=== PATIENT | male | born 1945 | race Caucasian/White ===

== ENCOUNTER 2019-02-18 17:57 | Inpatient (IN) | payer OTHER ==
[~2019-02-18] VITALS: Ht 167.6 cm; Wt 63.5 kg
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
--- NOTE | ~2019-02-18 | PR ---
[place], [place] PROGRESS NOTE NAME: [facility]CANTAR [id number] UNIT #: [id number] ROOM: 315 DOCTOR: ROOPA AGUILERA CNP BIRTHDATE: [birth year] DOS: 02/21/2019 CHIEF COMPLAINT: "Dolor de estomago." SUMMARY OF THE VISIT: The patient was interviewed as he sat in the dining room, eating his breakfast. The patient did engage in conversation with me. He does tell me in Bolivian that he has a stomachache. Staff reports that yesterday the patient did throw up after breakfast and had decreased appetite the rest of the day. He did have an episode of being irritable and anxious and pacing yesterday. He did sleep 7 hours. MENTAL STATUS EXAMINATION: The patient is alert and oriented to self. He was pleasant with me. No sarah or hypomania noted. No delusions or paranoia noted. No psychotic symptoms noted. No auditory or visual hallucinations noted. The patient's mood was calm. His affect congruent with mood. No agitation, irritability or aggression noted at this time. PLAN: Due to the patient having stomachache, I am not going to change any medications at this time, may even to consider increasing Risperdal if the patient does continue to display agitation, irritability, and pacing. However, at this time, I recommend that we just monitor due to the patient is not feeling well. The patient also was taking Nuplazid [facility]. This medication is not available here at the hospital. We will try to see if we can get some samples for this patient in order that he can continue his medication. Continue to monitor the patient for effectiveness of medication as well as any side effects. Continue to encourage the patient to engage in individual and ochoa milieu activity. Continue fall and safety precautions. Plan to return the patient to the least restrictive environment once he is considered psychiatrically stable. Roopa Aguilera CNP CM:PNTRANS 33 ROOPA AGUILERA CNP 02/21/19 2233 interface
--- NOTE | ~2019-02-18 | PR ---
[place], [place] PROGRESS NOTE NAME: IRAM ALCANTAR UNIT #: [id number] ROOM: 315 DOCTOR: MAYCO WREN MD BIRTHDATE: [birth year] DOS: 02/22/2019 INTERVAL NOTE CHIEF COMPLAINT: The patient smiled and nodded his head. SUMMARY OF THE VISIT: The patient was attempted to be interviewed as he was sitting, eating his breakfast. He stopped, nodded his head and was pleasant. He did not show agitation or aggression. There was no mood lability noted. He continues to be grossly confused. MENTAL STATUS EXAMINATION: He is alert and oriented to person, possibly place, but not time. Mood is fairly euthymic. Affect is appropriate. There was no sarah, hypomania or psychosis. Short term memory continues to be problematic. PLAN: I will increase his Aricept from 5 to 10 mg a day. I will continue to engage in individual and ochoa milieu activity, returning to the least restrictive environment when psychiatrically stable. MAYCO WREN MD CM:PNTRANS [phone] MAYCO WREN MD 02/22/19 2232 interface
--- NOTE | ~2019-02-18 | PR ---
[place], [place] PROGRESS NOTE NAME: IRAM ALCANTAR UNIT #: [id number] ROOM: 315 DOCTOR: MAYCO WREN MD BIRTHDATE: [birth year] DOS: 03/02/2019 INTERVAL NOTE CHIEF COMPLAINT: "The patient nodded when I asked if he wanted more food." SUMMARY OF THE VISIT: The patient was interviewed as he had finished his breakfast or at least had 3/4 of it finished when I asked him if he wanted more, he nodded in approval. The nurse's aide brought back his tray and he finished the remainder of it. He was bright and pleasant. He smiled readily. He voiced no complaints. There was no agitation or aggression. MENTAL STATUS: He is alert and oriented to person, doubtful place or time. Mood seems euthymic. Affect appropriate. Speech rate and pattern is slow and deliberate. There is no sarah, hypomania or psychosis. Short term memory remains poor. PLAN: I will continue his current psychotropic regimen. Continue to engage in individual and ochoa milieu activity, returning to the least restrictive environment when psychiatrically stable. MAYCO WREN MD CM:PNTRANS 43 MAYCO WREN MD 03/02/192140 interface
--- NOTE | ~2019-02-18 | PR ---
[place], [place] PROGRESS NOTE NAME: IRAM ALCANTAR UNIT #: [id number] ROOM: 315 DOCTOR: MAYCO WREN MD BIRTHDATE: [birth year] DOS: 03/01/2019 CHIEF COMPLAINT: The patient was nonverbal, but looked in distress. SUMMARY OF THE VISIT: The patient was interviewed as he was sitting in front of his full breakfast. He had not eaten anything. When I asked him how he was feeling, he kind of shrugged his shoulders and did nod affirmatively when I asked if his belly was hurting. This has been an ongoing issue with him during this stay and there are times where he eats extremely well and other times when his appetite seems to be very poor. There has been no agitation or aggression. There has been no mood lability. There has been no sexually inappropriate behavior. MENTAL STATUS: He is alert and oriented to person, possibly place, although doubtful, not to time. He does have significant processing difficulty. Short-term memory is very poor. PLAN: I will discontinue his Nuplazid as I have not seen him exhibit any type of psychotic symptoms secondary to the Parkinson's. I will go ahead and check an amylase and lipase to see what might be causing this significant nausea and belly ache. Otherwise, I will defer to the hospitalist expertise to further determine if workup is needed. We will engage in individual and ochoa milieu activity, returning to the least restrictive environment when psychiatrically stable. MAYCO WREN MD CM:PNTRANS [id number] MAYCO WREN MD 03/01/19 0946 interface
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
--- NOTE | ~2019-02-18 | PR ---
[place], [place] PROGRESS NOTE NAME: IRAM ALCANTAR UNIT #: [id number] ROOM: 315 DOCTOR: MAYCO WREN MD BIRTHDATE: [birth year] DOS: 02/24/2019 CHIEF COMPLAINT: "Morning." SUMMARY OF THE VISIT: The patient was interviewed as he was walking by the nurses' station and waving, I exited the nursing station and followed him into the dining area, he smiled readily, shook my hand and sat down to eat. He was pleasant and cooperative. There was no agitation, no aggression. He has not been inappropriate. He has been for the most part pleasantly confused. MENTAL STATUS: He is alert and oriented to self, unclear place, certainly not time. Mood for the most part seems euthymic. Affect is appropriate. His speech rate and pattern is slow and he does still mix his languages. There is no sarah, hypomania or psychosis. Short term memory seems to remain poor. PLAN: I will continue his current psychotropic regimen. I will change the expiration date for his p.r.n. Ativan to 03/15/2019, so it is present in case he needs it. We will continue to engage him in individual and ochoa milieu activity, returning to the least restrictive environment when psychiatrically stable. MAYCO WREN MD CM:PNTRANS [phone] MAYCO WREN MD 02/25/19 0234 interface
--- NOTE | ~2019-02-18 | PR ---
[place], [place] PROGRESS NOTE NAME: IRAM ALCANTAR UNIT #: [id number] ROOM: 315 DOCTOR: MAYCO WREN MD BIRTHDATE: [birth year] DOS: 02/26/2019 CHIEF COMPLAINT: "Morning." SUMMARY OF THE VISIT: The patient was interviewed as he was sitting at the dining table, pleasantly eating his breakfast. He stopped and smiled at me. He offered no complaints and stated he did not need anything at this time. Nurses report for the most part, he has been pleasantly confused. There have been no major outbursts. No change in his behavior and he is tolerating the current medication regimen well. MENTAL STATUS: He is alert and oriented to person, doubtful place, certainly not time. Mood does seem to be euthymic. Affect more appropriate. There is no sarah, hypomania or other psychiatric symptoms. Memory continues to be poor. PLAN: I will continue his current psychotropic regimen. At this point in time, we are awaiting for the above has been to determine what the appropriate placement is going to be for this unfortunate gentleman who is now homeless. MAYCO WREN MD CM:PNTRANS [id number] MAYCO WREN MD 02/26/19 1021 interface
--- NOTE | ~2019-02-18 | PR ---
[place], [place] PROGRESS NOTE NAME: IRAM ALCANTAR UNIT #: [id number] ROOM: 315 DOCTOR: MAYCO WREN MD BIRTHDATE: [birth year] DOS: 03/04/2019 CHIEF COMPLAINT: "Good morning." SUMMARY OF THE VISIT: The patient was interviewed as he was coming out of the dining room. He had already eaten breakfast and was walking towards his room. I walked next to him and followed him. He reached out, shook my hand and wished me good morning. He was bright and pleasant for the most part. There was certainly no agitation or aggression noted. No mood lability. There was also no sedation, somnolence, extrapyramidal symptoms or tardive dyskinesia. MENTAL STATUS: He is alert and oriented to self, not certain about place, certainly not time. Mood for the most part is euthymic. Affect is appropriate. There is no sarah or hypomania noted. No gross psychotic symptoms. Short term memory is exceedingly poor. PLAN: I will continue his current psychotropic regimen, continue to engage in individual and ochoa milieu activity, returning to the least restrictive environment when psychiatrically stable. MAYCO WREN MD CM:PNTRANS [id number] MAYCO WREN MD 03/04/19 1303 interface
--- NOTE | ~2019-02-18 | PR ---
[place], [place] PROGRESS NOTE NAME: IRAM ALCANTAR UNIT #: [id number] ROOM: 315 DOCTOR: ROOPA AGUILERA CNP BIRTHDATE: [birth year] DOS: 02/20/2019 CHIEF COMPLAINT: "I am trying." SUMMARY OF THE VISIT: The patient was interviewed as he sat in the dining room, eating his breakfast. The patient was vaping syrup from his plate on to the table. The patient's speech is nonsensical. He is unable to answer questions appropriately. Staff reports that the patient remains confused. He did sleep 8 hours last night. He has been compliant with medications. His appetite has been good. No noted aggression during the night or early this morning. Staff does report that the patient does seem to be better and more relaxed when he is with a smaller group of people. MENTAL STATUS EXAMINATION: The patient is alert and oriented to himself only. He was pleasant. No sarah or hypomania noted. No delusions or paranoia noted. No auditory or visual hallucinations noted. The patient's mood was calm. His affect is congruent with mood. No aggression, agitation or irritability noted at this time. PLAN: We will continue the patient's medications as prescribed at this time. Continue to monitor for effectiveness as well as side effects. Continue to encourage the patient to engage in individual and ochoa milieu activity. Continue fall and safety precautions. Plan is to return the patient to the least restrictive environment once he is considered psychiatrically stable. Roopa Aguilera CNP CM:PNTRANS [phone] ROOPA AGUILERA CNP 02/20/19 2340 interface
[2019-02-18] MEDS ORDERED: SENOKOT8.6 MG PO (18:02)
[2019-02-18] MEDS ORDERED: NUPLAZID34 MG PO (18:02)
[2019-02-18] MEDS ORDERED: VITAMIN D5000 UNIT PO (18:03)
[2019-02-18] MEDS ORDERED: ZANTAC 150150 MG PO (18:04)
[2019-02-18] MEDS ORDERED: NAMENDA10 MG PO (18:05)
[2019-02-18 19:25] VITALS: BP 117/62
[2019-02-18 20:08] VITALS: BP 117/62
--- NOTE | 2019-02-18 22:42 | NUR ---
IRAM ALCANTAR a 73 year old M admitted via wheel chair from the ADMITTING as a voluntary admission by POA. Arrived on unit at 192. ALLERGIES: PENICILLIN,EXELON. Vital signs are: [id number] 117/62. The POA gave verbal consent for the following forms with stated understanding: Authorization For The Release of Medical Information, Clothing List, Consent to Voluntary Admission and Hospitalization, Consent and Release Forms/Receipt of Rights, Acknowledgement of Advance Directive Information, Behavioral Health Consent Form, and Informed Consent of Medications. Admitted under the services of Dr. SIENA CHAMPION,[facility]. A search was conducted and hazardous articles were removed. Client was oriented to the unit. SUSANNAH PARRY
--- NOTE | 2019-02-18 22:47 | NUR ---
Called and notified Dr. Rodriguez regarding admission and he said to place care under Dr. Verdugo.
--- NOTE | 2019-02-18 23:00 | NUR ---
Dr. Sandoval here and saw patient. Awaiting new orders.
--- NOTE | 2019-02-19 02:26 | NUR ---
24 HR chart check completed.
--- NOTE | 2019-02-19 02:29 | NUR ---
24 HR chart check completed.
--- NOTE | 2019-02-19 05:25 | NUR ---
Patient slept approx. 5 hours throughout shift. Q 15 minute safety checks continued and maintained.
[2019-02-19 06:38] LABS: BASO # 0.1 10*3/uL (0.0-0.1); BASO % 0.6 % (0.0-1.0); EOS # 0.3 10*3/uL (0.0-0.4); EOS % 3.2 % (1.0-4.0); HEMATOCRIT 45.8 % (42.0-52.0); HEMOGLOBIN 14.8 g/dl (14.0-18.0); LYMPH # 2.1 10*3/uL (1.3-4.4); LYMPH % 26.6 % (27.0-41.0); MEAN CELL VOLUME 96.2 fl (80.0-94.0); MEAN CORPUSCULAR HGB 31.1 pg (27.0-31.0); MEAN CORPUSCULAR HGB CONC 32.3 g/dl (33.0-37.0); MEAN PLATELET VOLUME 9.9 fl (9.6-12.3); MONO # 0.6 10*3/uL (0.1-1.0); MONO % 7.7 % (3.0-9.0); NEUT # 4.9 10*3/uL (2.3-7.9); NEUT % 61.6 % (47.0-73.0); PLATELET COUNT AUTOMATED 296 10*3/uL (130-400); RED BLOOD COUNT 4.76 10*6/uL (4.50-5.90); RED CELL DISTRI WIDTH 13.5 % (0-14.5); WHITE BLOOD COUNT 7.9 10*3/uL (4.8-10.8)
[2019-02-19 07:21] LABS: CHLORIDE 103 mmol/L (98-107); CREATININE 0.88 mg/dL (0.70-1.30); POTASSIUM 3.8 mmol/L (3.5-5.1); SGOT/AST 19 IU/L (3-35); SGPT/ALT 26 U/L (12-78); SODIUM 139 mmol/L (136-145)
[2019-02-19 07:36] LABS: ALBUMIN 3.7 gm/dl (3.1-4.5); ALKALINE PHOSPHATASE 87 U/L (45-117); BUN 12 mg/dl (7-24); CHOLESTEROL 266 mg/dL (<200); HDL CHOLESTEROL 71 mg/dl (40-60); LDL CHOLESTEROL 175 mg/dL (9-159); TOTAL PROTEIN 7.9 gm/dL (6.4-8.2); TRIGLYCERIDES 102 mg/dl (<150); VLDL CHOLESTEROL 20 mg/dL (6-40)
[2019-02-19 07:59] LABS: VITAMIN D, 25-HYDROXY 69.4 ng/mL (30-100)
[2019-02-19 08:00] VITALS: BP 119/78
--- NOTE | 2019-02-19 08:30 | NUR ---
Treatment Plan meeting with Dr. Huertas, RN, AT, SW and Solar Lab Technician. Plan for discharge next week or the following week. Pt. came to [facility] from [facility]. Will reach out to facility to discuss discharge planning.
--- NOTE | 2019-02-19 10:40 | NUR ---
DR. SMITH ON FLOOR TO ASSESS PT, UPDATE PROVIDED.
--- NOTE | 2019-02-19 11:21 | NUR ---
SPEECH THERAPY Patient seen for bedside swallowing evaluation. He was referred due to history of dysphagia. Patient is currently in penitentiary care and currently on pureed diet with nectart-like liquids. Patient was pleasantly confused throughout evaluation. He was not able to follow simple, single-step commands or answer questions appropriately. Oral mech exam not able to be obtained. Patient assessed with pureed consistency and nectar-like liquids as that is patient's diet at his long-term care facility. Patient required encouargement to consume snack. He required assistance with drinking from a cup on the first trial, but then consumed 2 additional sips independnetly. Intake was limited even with clinican encouragement, however, no overt s/s of penetration or aspiration were observed across all trials. Recommended patient remain on current diet, with short-term follow-up treatment recommended to ensure safety and tolerance of recommended diet throughout a meal. Results and recommendation were shared with patient's nurse who verbalized understanding. Leny Cox MA [facility]APHIC CLERK
--- NOTE | 2019-02-19 12:26 | NUR ---
Left Message for Nell Godinez Admissions at [facility] concerning plans to discharge next week. Clinical Updates faxed to facility.
--- NOTE | 2019-02-19 12:46 | NUR ---
Shift chart check completed.
--- NOTE | 2019-02-19 13:39 | NUR ---
Occupational Therapy referral received and screen completed. Patient is independent in all mobility on the 3N unit without a device. Nursing reports that he is independent in feeding and is confused and needs supervision and assist d/t impaired cognition. Discharge OT referral as patient appears at baseline functioning. Thank you. Alexia Villanueva OTr/Regi
--- NOTE | 2019-02-19 13:39 | NUR ---
PHYSICAL THERAPY Physical therapy screen complete, 3N. Nursing reports that patient is independent throughout BHU. No PT needs at this time. Discharge PT order. Thank you. Nell Murray,PT,DPT.
--- NOTE | 2019-02-19 15:12 | NUR ---
P- CONFUSED, ALERT TO PERSON ONLY. NONSENSICAL RESPONSES TO INTERVIEW QUESTIONS/LANGUAGE BARRIER. ISOLATIVE TO SELF. I- REORIENT FREQUENTLY WHEN CONFUSION IS NOTED. ASSESS MOOD, ORIENTATION, SI/HI, HALLUCINATIONS, DELUSIONS OR PAIN. PROVIDE MEDICATIONS ON TIME WITH EDUCAITON ON EACH. 1:1 INTERACTION WITH EMOTIONAL SUPPORT PROVIDED. ENCOURAGE TO ATTEND/PARTICIPATE IN GROUP THERAPIES FOR EMOTIONAL SUPPORT AND VENTILATION OF FEELINGS. R- REMAINS AT BASELINE CONFUSION. PATIENT SPEAKING NONENGLISH AND LITHUANIAN; NONSENSICAL RESPONSES TO INTERVIEW QUESTIONS. UNABLE TO ASSESS DUE TO COGNITIONS. NO S/S OF INTERACTING WITH INTERNAL STIMULI. NO DELUSIONAL THOUGHT PROCESS NOTED. NO S/S OF DISTRESS NOTED. RESPS EVEN AND UNLABORED ON ROOM AIR. MED COMPLIANT. PATIENT REMAINS ISOLATIVE TO SELF, SITS IN DINING ROOM. SPEAKS TO STAFF/PEERS WHEN SPOKEN TO FIRST. ATTEND/PARTICIPATE IN GROUP THERAPY. GAIT STEADY WHILE AMBULATING. MOOD PLEASANT. P- REORIENT FREQUENTLY WHEN CONFUSION IS NOTED. 1:1 INTERACTION WITH EMOTIONAL SUPPORT WHEN NECESSARY. ASSESS MOOD, ORIENTATION, SI/HI, HALLUCINATIONS, DELUSIONS OR PAIN EVERY SHIFT. PROVIDE MEDICATIONS ON TIME WITH EDUCATION ON EACH. ENCOURAGE TO ATTEND/PARTICIPATE IN GROUP THERAPIES. Q15 MINUTE CHECKS MAINTAINED FOR SAFETY.
--- NOTE | 2019-02-19 15:34 | NUR ---
PM GROUP PT ATTENDED AFTERNOON GROUP THERAPY AND DESPITE COGNITIVE IMPAIRMENT, PT SWAYED AND TAPPED HIS FOOT TO THE MUSIC. PT WAS CONTENT TO SIT AND ENJOY THE MUSIC AND EXHIBITED NO AGITATION OR AGGRESSION WHILE IN GROUP.
--- NOTE | 2019-02-19 15:38 | NUR ---
Pt is a poor historian and unable to provide personal hx for assessment. Unable to reach pt's Tina by phone. Will attempt again at another time.
--- NOTE | 2019-02-19 18:02 | NUR ---
PEG TUBE PLACEMENT CHECKED, WITH AN AUSCULATED AIR BOLUS, EASY TO FLUSH WITH 240CC OF TAP WATER. PT TOLERATED WELL
[2019-02-19 20:00] VITALS: BP 140/83
--- NOTE | 2019-02-19 22:59 | NUR ---
Patient alert to person with confusion noted. No signs of any hallucinations noted at this time. PEG tube placement assessed with air bolus prior to flushing tube with 150 cc water. Patient compliant with medications without any difficulty. Patient pleasant and cooperative with hands on care. Plan to continue to encourage medication compliance and to continue to provide emotional support when needed. Q 15 ninute safety checks continued and maintained. See [facility] flowsheet for further documentation.
--- NOTE | 2019-02-20 00:45 | NUR ---
24 HR chart check completed.
--- NOTE | 2019-02-20 05:27 | NUR ---
Patient slept approx. 8 hours throughout shift. Q 15 minute safety checks continued and maintained.
--- NOTE | 2019-02-20 08:02 | NUR ---
PT AWAKE AND ALERT. RESPS EASY AND EVEN ON ROOM AIR. FEEDING SELF BREAKFAST IN DINING ROOM WITH PEERS. NO DISTRESS NOTED. DONG CAUL DRESSER ON UNIT TO SEE PT AT THIS TIME FOR . UPDATE GIVEN.
[2019-02-20 08:11] VITALS: BP 124/73
--- NOTE | 2019-02-20 10:27 | NUR ---
[employer] WILDFIRE PREVENTION SPECIALIST ON UNIT TO SEE PT AT THIS TIME. MADE AWARE PT HAD SMALL EMESIS THIS AM AFTER BREAKFAST. TOOK AM MEDICATIONS WITHOUT DIFFICULTY. NO FURTHER EMESIS OF THIS TIME.
--- NOTE | 2019-02-20 11:05 | NUR ---
[employer] SALES REPRESENTATIVE AWARE PT NOT RECIEVING NUPLAZID INPATIENT AT THIS TIME IT IS UNAVAILABLE FROM [facility].
--- NOTE | 2019-02-20 11:50 | NUR ---
AM/EXERCISE/BINGO PT ATTENDED AND OBSERVED DURING GROUP. PT EXPRESSED CONFUSION OFTEN AND STATES "MY BELLY HURTS" THIS STAFF INFORMED NURSING OF PT COMPLAINT. PT RELAXED AND OBSERVED REMAINDER OF GROUP WITH NO ANXIETY OR SEXUALLY INAPPROPRIATE BEHAVIORS EXPRESSED.
--- NOTE | 2019-02-20 13:00 | NUR ---
PT ASSESSED D/T C/O "BELLY HURTS". PT UNABLE TO PROVIDE ANY FURTHER SPECIFIC COMPLAINTS. VITALS STABLE: [id number]/80- 97% ROOM AIR. +BSx4. PEG TUBE PLACEMENT VERIFIED VIA AIR BOLUS WITH NO RESIDUAL NOTED. NO DISTRESS NOTED. NO FURTHER EMESIS. WILL CONT TO MONITOR.
--- NOTE | 2019-02-20 14:02 | NUR ---
P- CONFUSION. NONSENSICAL ANSWERS PROVIDED BY PT IN RESPONSE TO QUESTIONS BY STAFF. ISOLATIVE. EVIDENCE OF POSSIBLE TACTILE HALLUCINATIONS OBSERVED THIS AM. NO AGGRESSIVE BEHAVIORS DISPLAYED OF THIS TIME IN THE SHIFT. I- ORIENTATION, MOOD AND BEHAVIOR ASSESSED. ASSESSED PT FOR SI/HI, INTENT OR PLAN. ASSESSED PT FOR S/S HALLUCINATIONS, PARANOIA AND/OR DELUSIONS. MEDICATIONS ADMINISTERED PER PHYSICIAN'S ORDERS. ASSISTANCE WITH ADL CARE PROVIDED NEEDED. ENCOURAGED PT TO ATTEND AND PARTICIPATE IN [facility] GROUPS AND ACTIVITIES. R- PT IS ALERT AND ORIENTED TO NAME ONLY. UNABLE TO FURTHER ASSESS ORIENTATION D/T LANGUAGE BARRIER/NONSENSICAL RESPONSES PROVIDED BY PT. MEMORY APPEARS TO BE IMPAIRED. RESPS EASY AND EVEN ON ROOM AIR. MOOD APPEARS STABLE THIS SHIFT, AFFECT FLAT. NO VOICED SI/HI, INTENT OR PLAN. EVIDENCE OF POSSIBLE TACTILE HALLUCINATIONS OBSERVED THIS AM BY THIS RN PT APPEARED TO HAVE BEEN WINDING UNSEEN STRING IN HANDS AND PASSING AN UNSEEN OBJECT BACK AND FORTH BETWEEN PT'S HANDS. PT IS MEDICATION COMPLIANT WITHOUT DIFFICULTY. NO AGGRESSIVE BEHAVIORS DISPLAYED THIS SHIFT. NO ELOPEMENT ATTEMPTS MADE. PT CALM AND COOPERATIVE WITH CARE. NO DISTRESS NOTED. P- PLAN TO CONTINUE CURRENT TREATMENT, CONTINUE TO MONITOR MOOD AND BEHAVIORS, PROVIDE APPROPRIATE REORIENTATION, REDIRECTION AND 1:1 NEEDED. CONTINUE TO ENCOURAGE MEDICATION COMPLIANCE WELL GROUP ATTENDANCE AND PARTICIPATION.
--- NOTE | 2019-02-20 15:58 | NUR ---
PM/REMINISCE PT CHOSE NOT TO PARTICIPATE ALTHOUGH CAME INTO ACTIVITY ROOM TOWARDS THE END OF GROUP. PT CHOSE NOT TO SIT DOWN BUT STAND AND OBSERVE THEN LEAVE THE ROOM. PT DID NOT RETURN. PT WILL CONTINUE TO BE ENOCURAGED TO ATTEND FUTURE GROUP SESSIONS AND PARTICIPATE TO BEST OF ABILITY.
--- NOTE | 2019-02-20 16:21 | NUR ---
SHIFT CHART CHECK COMPLETED.
--- NOTE | 2019-02-20 18:52 | NUR ---
MULTIPLE ATTEMPTS THIS SHIFT TO OBTAIN URINALYSIS UNSUCCESSFUL. WILL CONTINUE TO ATTEMPT.
[2019-02-20 19:55] VITALS: BP 128/76
--- NOTE | 2019-02-20 22:25 | NUR ---
P- ALERT TO NAME ONLY. MEMORY DEFICITS NOTED. NONSENSICAL RESPONSE TO STAFF. MOOD SLIGHTLY IRRITABLE. PT PACING IN AND OUT OF QUIET ROOM. I- REORIENT FREQUENTLY WHEN CONFUSION IS NOTED. 1:1 INTERACTION WITH EMOTIONAL SUPPORT PROVIDED. PROVIDE MEDICATIONS ON TIME WITH EDUCATION ON EACH. ASSIST WITH ADLS, CARE, AND REORIENT TO PT'S ROOM DUE TO CONFUSION. OFFER HS SNACK. R- PT ALERT TO NAME ONLY. REORIENTATION INEFFECTIVE. UNABLE TO ASSESS INTERVIEW QUESTIONS OR FURTHER ORIENTATION DUE TO LANGUAGE BARRIER AND NONSENSICAL RESPONSES. NO S/S OF INTERACTING WITH INTERNAL STIMULI. NO S/S OF DISTRESS NOTED. RESPS EVEN AND UNLABORED ON ROOM AIR. MED COMPLIANT. PT REFUSED HS SNACK. PT NOTED TO BE PACING IN AND OUT OF QUIET ROOM WITH IRRITABLE OVERTONES WHILE TALKING NONSENSICAL. PT INCONTINENT OF BOWEL. ONE ASSIST WITH GETTING CLEANED UP, REORIENT TO PT'S ROOM TO SLEEP PROVIDED. AFTER ASSISTING PT INTO NEW CLOTHES, PT WENT TO BED. GAIT STEADY WHILE AMBULATING. P- REORIENT FREQUENTLY WHEN CONFUSION IS NOTED. ASSIST FREQUENTLY WITH ADL AND CARE DUE TO CONFUSION. PROVIDE WITH MEDICATIONS ON TIME WITH EDUCATION ON EACH. 1:1 INTERACTION WITH EMOTIONAL SUPPORT PROVIDED WHEN NECESSARY. Q15 MINUTE CHECKS MAINTAINED FOR SAFETY.
--- NOTE | 2019-02-20 23:46 | NUR ---
24 HR chart check completed.
--- NOTE | 2019-02-21 05:53 | NUR ---
PATIENT MONITORED ON Q15 MINUTE SAFETY CHECKS THROUGHOUT THE NIGHT. PT NOTED TO HAVE SLEPT APPROXIMATELY 7 HOURS UNINTERRUPTED.
--- NOTE | 2019-02-21 06:50 | NUR ---
PEG SITE ASSESSED, NO ERYTHMIA OR DRAINAGE NOTED TO SITE. AIR BOLUS AUSCULTATED. FLUSHED WITH 15OCC OF WATER WITH NO DIFFICULTY. PATIENT TOLERATED WELL.
[2019-02-21 07:50] VITALS: BP 127/68
--- NOTE | 2019-02-21 08:00 | NUR ---
PT AWAKE AND ALERT. RESPS EASY AND EVEN ON ROOM AIR. DECLINED BREAKFAST AT THIS TIME. C/O STOMACH ACHE. VITALS STABLE. HAD BM OVERNIGHT. WILL ADDRESS WITH HOSPITALISTS. [employer] SALES REPRESENTATIVE ON UNIT TO SEE PT AT THIS TIME, UPDATE GIVEN.
--- NOTE | 2019-02-21 08:35 | NUR ---
[employer] REINVESTMENT ACT OFFICER ON UNIT TO SEE PT AT THIS TIME. MADE AWARE PT REFUSED BREAKFAST D/T C/O STOMACH ACHE.
--- NOTE | 2019-02-21 08:56 | NUR ---
URINALYSIS OBTAINED VIA CLEAN CATCH, LABELED AND SENT TO LAB VIA PHARMACY TUBE SYSTEM.
[2019-02-21 08:58] LABS: BILIRUBIN NEGATIVE (NEGATIVE); BLOOD 1+ (NEGATIVE); CLARITY SL CLOUDY (CLEAR); COLOR YELLOW (YELLOW); GLUCOSE NEGATIVE (NEGATIVE); KETONE NEGATIVE (NEGATIVE); LEUKO ESTERASE NEGATIVE (NEGATIVE); NITRITE NEGATIVE (NEGATIVE); SPECIFIC GRAVITY 1.015 (1.005-1.030); UROBILINOGEN 0.2 E.U./dl (0.2-1.0)
[2019-02-21 09:04] LABS: BACTERIA 2+; MUCOUS 1+
--- NOTE | 2019-02-21 09:46 | NUR ---
[employer] BUILDING SUPERINTENDENT AWARE OF URINALYSIS RESULT.
[2019-02-21 10:15] LABS: BASO % 0.5 % (0.0-1.0); EOS % 0.5 % (1.0-4.0); HEMATOCRIT 43.7 % (42.0-52.0); HEMOGLOBIN 14.5 g/dl (14.0-18.0); LYMPH # 1.5 10*3/uL (1.3-4.4); LYMPH % 16.9 % (27.0-41.0); MEAN CELL VOLUME 94.8 fl (80.0-94.0); MEAN CORPUSCULAR HGB 31.5 pg (27.0-31.0); MEAN CORPUSCULAR HGB CONC 33.2 g/dl (33.0-37.0); MONO # 0.7 10*3/uL (0.1-1.0); MONO % 8.3 % (3.0-9.0); NEUT # 6.4 10*3/uL (2.3-7.9); NEUT % 73.6 % (47.0-73.0); PLATELET COUNT AUTOMATED 288 10*3/uL (130-400); RED BLOOD COUNT 4.61 10*6/uL (4.50-5.90); RED CELL DISTRI WIDTH 13.6 % (0-14.5); WHITE BLOOD COUNT 8.7 10*3/uL (4.8-10.8)
[2019-02-21 10:31] LABS: ALBUMIN 3.7 gm/dl (3.1-4.5); ALKALINE PHOSPHATASE 83 U/L (45-117); BUN 16 mg/dl (7-24); CHLORIDE 103 mmol/L (98-107); CREATININE 0.94 mg/dL (0.70-1.30); POTASSIUM 4.1 mmol/L (3.5-5.1); SGOT/AST 17 IU/L (3-35); SGPT/ALT 22 U/L (12-78); SODIUM 141 mmol/L (136-145); TOTAL PROTEIN 7.6 gm/dL (6.4-8.2)
--- NOTE | 2019-02-21 10:44 | NUR ---
IV started right antecubital with #22 angiocath after 3 attempts. The IV site was prepped with Chloraprep. NSS lock attached. IV placed for administration of IV contrast for CT scan. Sterile dressing applied. Patient tolerated precedure well. Procedure performed according to [facility] policy & procedure. IV started by ER nurse after unsuccessful attempts by this RN and 2nd RN.
--- NOTE | 2019-02-21 14:11 | NUR ---
CALL PLACED TO /DPOAH LAURITA ALCANTAR, MADE AWARE OF CT WITH IV CONTRAST ORDERED TO BE DONE THIS AFTERNOON D/T PT C/O INTERMITTENT STOMACH ACHES WITH POOR PO INTAKE AT TIMES. VERIFIED WITH PT HAS NO KNOWN ALLERGIES TO IV DYE, SHELLFISH OR IODINE. STATES ONLY ALLERGY SHE IS AWARE OF IS PENICILLIN. GAVE CONSENT FOR CT TO BE DONE. WITNESSED BY 2ND RN FABIO SAUER IN CT UPDATED ON CONVERSATION WITH .
--- NOTE | 2019-02-21 14:32 | NUR ---
PT RETURNED FROM CT WITHOUT INCIDENT.
--- NOTE | 2019-02-21 16:45 | NUR ---
P- PLEASANTLY CONFUSED. NONSENSICAL SPEECH. NO AGGRESSIVE BEHAVIORS DISPLAYED OF THIS TIME IN THE SHIFT. I- ORIENTATION, MOOD AND BEHAVIORS ASSESSED. ASSESSED PT FOR SI/HI, INTENT OR PLAN. ASSESSED PT FOR S/S HALLUCINATIONS, PARANOIA AND/OR DELUSIONS. MEDICATIONS ADMINISTERED PER PHYSICIAN'S ORDERS. ASSISTANCE WITH ADL CARE PROVIDED NEEDED. ENCOURAGED PT TO ATTEND AND PARTICIPATE IN [facility] GROUPS AND ACTIVITIES. R- PT IS ALERT AND ORIENTED TO NAME ONLY. CONFUSED IN ALL OTHER AREAS. MEMORY GAPS NOTED. RESPS EASY AND EVEN ON ROOM AIR. MOOD APPEARS STABLE, AFFECT APPROPRIATE. SPEECH IS SOFT, NONSENSICAL. PT PROVIDES IRRELEVANT ANSWERS TO QUESTIONS ASKED BY STAFF. PT DENIES SI/HI, INTENT OR PLAN. PT DENIES HALLUCINATIONS, NO RESPONSE TO INTERNAL STIMULI NOTED. NO PARANOIA OR DELUSIONS NOTED. PT HAS BEEN CALM AND COOPERATIVE THIS DATE. NO AGGRESSIVE BEHAVIORS NOTED. NO DISTRESS NOTED. P- PLAN TO CONTINUE CURRENT TREATMENT, CONTINUE TO MONITOR MOOD AND BEHAVIORS, PROVIDE APPROPRIATE REORIENTATION, REDIRECTION AND 1:1 NEEDED. CONTINUE TO ENCOURAGE MEDICATION COMPLIANCE WELL GROUP ATTENDANCE AND PARTICIPATION.
--- NOTE | 2019-02-21 18:53 | NUR ---
SHIFT CHART CHECK COMPLETED.
[2019-02-21 19:51] VITALS: BP 125/89
--- NOTE | 2019-02-22 | NUR ---
Hep Lock discontinued. Unable to flush Pressure applied. Sterile dressing applied. REJI RAINEY
--- NOTE | 2019-02-22 02:44 | NUR ---
PT MEDICATION COMPLIANT WITH ALL ASPECTS OF MEDICATIONS, G-TUBE BOLUS AND IV MONITORING. PT HAS FAIR APPETITE, REQUIRES SET UP AND GUIDANCE FOR MEALS TO COMPLETE DUE TO COGNITION. PT WANDERED HALLWAYS WITH NO INTERACTION WITH PEERS ON UNIT. SMILES WHEN SPOKEN TO WITH BROKEN PORTUGUESE/JAPANESE FOR COMMUNICATIONS NONSENSICAL WITH BOTH ASPECTS. PT SHOWED NO AGGRESSION TOWARD OTHERS THIS SHIFT. RESTING QUIETLY IN BED, CONTINUE TO MONITOR Q15 MIN
[2019-02-22 07:51] VITALS: BP 133/76
--- NOTE | 2019-02-22 08:30 | NUR ---
Treatment Plan meeting with Dr. Huertas, RN, AT, and Trades Helper. Plan for discharge Friday or Friday. Pt. will return to [place] at discharge.
--- NOTE | 2019-02-22 09:30 | NUR ---
JOHANNE SMITH ON UNIT TO ASSESS PT. UPDATE PROVIDED TO
--- NOTE | 2019-02-22 10:56 | NUR ---
Nutritional Support Services Note: Ht.5'6 Wt.140# IBW 142#. He requires appro. 1600cal daily to maintain current wt. Po intake of pureed diet is poor. He has a peg tube- requires 6cans of Osmolite daily bolus feed to provide adequate calories. Will follow as needed. Gill Conrad Rdn Ld
--- NOTE | 2019-02-22 11:56 | NUR ---
JOHANNE SMITH UPDATED ON EMESIS, VS, AND ORDER FROM NUTRITION FOR 6 CANS OSMOLITE IN [address] STATED SHE WILL PUT ORDER IN.
--- NOTE | 2019-02-22 11:58 | NUR ---
PT HAD EMESIS CLEAR PHLEGM NOTED. VS WNL.
[2019-02-22 11:59] VITALS: BP 133/79
--- NOTE | 2019-02-22 12:02 | NUR ---
AM GROUP/EXERCISE AND BRAIN GAMES PT WAS PRESENT FOR MORNING GROUP THERAPY BUT IS UNABLE TO PARTICIPATE AT THIS TIME DUE TO HIGH LEVEL OF CONFUSION AND LANGUAGE BARRIER. PT KEPT STANDING AND SPEAKING IN "GREEK" AND BELARUSIAN, ALL NONSENSICAL. PT EXHIBITED NO AGIATION, AGGRESSION OR ANY SEXUAL INAPPROPRIATENESS WHILE IN GROUP
--- NOTE | 2019-02-22 12:19 | NUR ---
SPEECH PATHOLOGY Dysphagia treatment withheld at this time. Clinician arrived on BHU during lunchtime meal but patient was not feeling well and had just vomited. Patient had gone back to his room. Will attempt again at a later time. GARCIA RAYGOZA MSCCC-STRAND BUNCHER FINE WIRE
--- NOTE | 2019-02-22 14:16 | NUR ---
PEG SITE PLACEMENT VERIFIED WITH AIR BOLUS, 20CC OF RESIDUAL. 2 CANS OF OSMOLITE AND FLUSH WITH 100CC OF FREE WATER PER ORDER. PT TOLERATED WELL.
--- NOTE | 2019-02-22 14:26 | NUR ---
Bill from [facility] here to see patient for onsite Assessment.
--- NOTE | 2019-02-22 15:37 | NUR ---
PM GROUP/LEISURE INTERESTS PT DID NOT ATTEND AFTERNOON GROUP THERAPY. PT WAS IN BED NAPPING
--- NOTE | 2019-02-22 17:32 | NUR ---
PT SITTING IN DINING ROOM WITH DINNER TRAY INFRONT OF HIM. POOR PO INTAKE, MUCH ENCOURAGEMENT PROVIDED. PT ALERT TO SELF. NONSENSICAL/LANGUAGE BARRIER WITH INTERACTION. MUCH DIRECTION NEEDED FOR SIMPLE TASKS. PT INCONTINENT OF URINE, ONE ASSIST WITH GETTING CLEANED UP. PLEASANT INTERACTION WITH STAFF. NO S/S OF INTERACTING WITH INTERNAL STIMULI. NO DELUSIONAL THOUGHT PROCESS NOTED. NO S/S OF DISTRESS NOTED. RESPS EVEN AND UNLABORED ON ROOM AIR. GAIT STEADY WHILE AMBULATING. WILL CONTINUE TO MONITOR PO INTAKE AND ENCOURAGE PO INTAKE. Q15 MINUTE CHECKS MAINTAINED FOR SAFETY.
--- NOTE | 2019-02-22 17:48 | NUR ---
Shift chart check completed.
[2019-02-22 19:44] VITALS: BP 122/78
--- NOTE | 2019-02-22 21:19 | NUR ---
PEG PLACEMENT VERIFIED WITH AIR BOLUS, 40CC OF GASTRIC RESIDUAL NOTED. 1 CAN OF OSMOLITE GIVEN AT THIS TIME PER ORDER. 100 CC OF WATER FLUSH. PATIENT TOLERATED WELL.
--- NOTE | 2019-02-22 21:29 | NUR ---
P- ALERT TO PERSON ONLY. CONFUSION AND ST/LT MEMORY DEFICITS STRONGLY NOTED. ISOLATIVE TO SELF. NONSENSICAL/LANGUAGE BARRIER WITH INTERACTION. REFUSED HS SNACK. I- REORIENT FREQUENTLY WHEN CONFUSION IS NOTED. PROVIDE WITH MEDICATIONS ON TIME WITH EDUCATION ON EACH. ENCOURAE INTERACTION WITH PEERS AND STAFF. ONE ASSIST WITH ADLS AND CARE DUE TO CONFUSION. ENCOURAGE PO INTAKE. R- PT REMAINS AT BASELINE CONFUSION EVEN WITH REORIENTATION PROVIDED. NONSENSICAL RESPONSES/LANG BARRIER WITH INTERACTION. UNABLE TO ASSESS MOST INTERVIEW QUESTIONS DUE TO NONSENSICAL/LANG BARRIER.NO S/S OF INTERACTING WITH INTERNAL STIMULI. NO DELUSIONAL THOUGHT PROCESS NOTED. NO S/S OF DISTRESS NOTED. RESPS EVEN AND UNLABORED ON ROOM AIR. PT PLEASANT. INTERACTIVE WHEN SPOKEN TO FIRST. MEDICATION COMPLIANT WITH NO DIFFICULTIES. GAIT STEADY WHILE AMBULATING. INCREASE CONFUSION WITH ADLS AND CARE, ONE ASSIST WITH ADLS AND CARE EFFECTIVE. REFUSED HS SNACK EVEN WITH MUCH ENCOURAGEMENT. P- REOIRENT FREQUENTLY WHEN CONFUSIN IS NOTED. PROVIDE MEDS ON TIME WITH EDUCAITON ON EACH. ENCOURAGE PO INTAKE. ASSIST WITH ADLS AND CARE DUE TO CONFUSION. ENCOURAGE INTERACTION WITH PEERS/STAFF. Q15 MINUTE CHECKS MAINTAINED FOR SAFETY.
--- NOTE | 2019-02-22 21:52 | NUR ---
24 HR chart check completed.
--- NOTE | 2019-02-23 05:35 | NUR ---
PATIENT MONITORED ON Q15 MINUTE SAFETY CHECKS THROUGHOUT THE NIGHT. PATIENT NOTED TO HAVE SLEPT APPROXIMATELY 6 HOURS WITH ONE BRIEF AWAKENING.
--- NOTE | 2019-02-23 06:34 | NUR ---
PEG TUBE PLACEMENT VERIFIED WITH AIR BOLUS, 5CC OF GASTRIC CONTENTS NOTED. 2 CANS OF OSMOLITE GIVEN PER PRN ORDER WITH A 100CC FREE WATER FLUSH. PATIENT TOLERATED WELL.
[2019-02-23 08:30] VITALS: BP 127/85
--- NOTE | 2019-02-23 08:30 | NUR ---
Treatment Plan meeting held this morning with Dr. Huertas, RN, AT, SW and Instructional Consultant. Plan for discharge Friday. Unsure if Patient is returning to [facility]. Will follow.
--- NOTE | 2019-02-23 08:34 | NUR ---
SPEECH PATHOLOGY Patient was seen for treatment this am during breakfast meal. Patient was seated at a table in activity room with peers. He was alert and pleasant, with confusion displayed. Patient fed himself with assistance. He was excessively mixing and stirring foods, but with redirection he was able to continue self feeding. Patient displayed no overt difficulty with food but his intake was poor overall. He began to complain of stomach discomfort and was rubbing his stomach and grimacing. His nurse was informed. Recommend patient remain on present diet with assistance provided during meals as needed and limiting distractions to help improve intake. Continue therapy plan short term. GARCIA RAYGOZA MSCCC-SOURCING ENGINEER
--- NOTE | 2019-02-23 10:00 | NUR ---
RAQUEL SMITH OPERATIONS PROGRAM MANAGER ON UNIT TO ASSESS PT, UPDATE PROVIDED.
--- NOTE | 2019-02-23 11:27 | NUR ---
HELD 11AM OSMOLITE D/T PT COSUMING 75% OF BREAKFAST. WILL ENCOURAGE PO INTAKE, JOHANNE SMITH AUTOMATION CONTROL INTEGRATOR UPDATED.
--- NOTE | 2019-02-23 11:55 | NUR ---
AM GROUP PT WAS PRESENT FOR MORNING GROUP THERAPY BUT IS UNABLE TO PARTICIPATE AT THIS TIME DUE TO COGNITIVE IMPAIRMENT
--- NOTE | 2019-02-23 13:28 | NUR ---
Referral to [facility] for [facility].
--- NOTE | 2019-02-23 14:42 | NUR ---
Received a call from pt's Tina who was crying. Tina stated that she had just received a call from the junior linux administrator at [facility] stating that they are issuing an emergency discharge for pt and that he is unable to return. Tina stated that she had made a request to the junior linux administrator that there be a meeting with the [facility] but that it never took place. Tina requested that this publications writer make the call to the [facility] since Tina was so upset and having difficulty talking. After conversation with Tina, phoned [facility] and left a voicemail requesting a return call. This publications writer then spoke to Janice, junior linux administrator at [facility] who stated that she cannot have pt returning there. Janice stated that pt can go months without an incident but that she cannot put other residents at risk. Janice stated that Layla from the would be at [facility] this afternoon to serve discharge paper to pt.
--- NOTE | 2019-02-23 15:20 | NUR ---
Spoke with Mariel from the ombudsman office and with pt's . Pt's is going to appeal the discharge. Per Mariel, pt will be required to stay at [facility] until the hearing takes place. This song writer asked for an approximate time frame for this. It could take up to a week or longer. Pt's Tina called this song writer later and stated that she received a call from Janice, medical record administrator from [facility], who stated, per Tina, that pt will not be permitted back into the building. Tina asked what she should do about this phone call. Instructed Tina to call [facility] and let her know of the conversation.
--- NOTE | 2019-02-23 15:32 | NUR ---
PM GROUP/ART AND MUSIC PT WAS PRESENT FOR AFTERNOON GROUP THERAPY SLEEPING IN A CHAIR AT THE BACK OF THE ROOM. PT WOULD WAKE, MUTTER SOMETHING AND GO BACK TO SLEEP
--- NOTE | 2019-02-23 16:27 | NUR ---
P: PT ISOLATIVE TO SELF THROUGHOUT THE AFTERNOON. PT OBSERVED TO BE EXPERIENCING AUDITORY/VISUAL HALLUCINATIONS, REACHING OUT FOR AND TALKING TO UNSEEN OTHERS. I: ENOCURAGE GROUP PARTICIAPTION AND SOCIALIZATION, RE-ORIENT AND PRESENT REALITY, MONITOR PT BEHAVIORS ON Q15 MIN SAFETY CHECKS R: INTERVENTIONS INEFFECTIVE D/T COGNITION. PT ALERT TO PERSON ONLY, CONFUSION AND SHORT TERM MEMORY DEFICITS NOTED PER PT BASELINE. PT CALM. PT ABLE TO FOLLOW SIMPLE COMMANDS AND DIRECTIONS. PT AMBULATORY THROUGHOUT UNIT, GAIT STEADY. PT CONTINENT OF BOWEL AND BLADDER, WITH DIRECTION, PT WILL BEGIN WANDERING THROUGOHUT THE UNIT, WHEN DIRECTED TO BATHROOM WILL REMAIN CONTINENT, OCCASIONAL EPISODES OF INCONTINENCE NOTED, CARE PROVIDED NEEDED. PT MED COMPLIANT WITHOUT DIFFICUTLY, MEDS CRUSHED IN CHOCOLATE PUDDING, UNABLE TO PROVIDE EDUCATION D/T COGNITION. P: MONITOR PT BEHAVIORS ON Q15 MIN SAFETY CHECKS, ENCOURAGE MED COMPLIANCE, PROVIDE EMOTIONAL SUPPORT AND 1:l FOR PT TO VOICE FEELINGS, CONTINUE TO PROVIDE REDIRECTION AND RE-ORIENTATION.
--- NOTE | 2019-02-23 17:31 | NUR ---
PT PEG TUBE PLACEMENT CHECKED WITH 15CC AIR BOLUS. PT TOLERATED ONE CAN OF OSMOLITE WITHOUT DIFFICULTY, UNABLE TO TOLERATE 2ND CAN, C/O STOMACH PAIN. PEG TUBE FLUSHED WITH [address] SERRANO UPDATED, NO FURTHER ORDERS AT THIS TIME.
[2019-02-23 19:21] VITALS: BP 135/64
--- NOTE | 2019-02-23 20:40 | NUR ---
EVENING/RELAXTION/REMINISCE PT ATTENDED PART OF GROUP FOR SNACK BUT DUE TO LEVELS OF CONFUSION UNABLE TO PARTICIPATE AT THIS TIME. NO AGGRESSIVE OR SEXUALLY INAPPROPRIATE BEHAVIORS EXPRESSED AT THIS TIME. PT WILL OCNTINUE TO ATTEND AN DBE ENCOURAGED OT PARTICIPATE TO BEST OF PT ABILITY.
--- NOTE | 2019-02-23 22:00 | NUR ---
PT PEG TUBE PLACEMENT VERIFIED VIA AIR BOLUS, PT RECIEVED 1 CAN OF OSMOLITE ORDERED AND FLUSHED WITH 100CC FREE WATER. AFTER FEEDING WAS COMPLETE PATIENT HAD AN EMESIS OF SNYDER AND PURPLE TINGED FLUID OF APPROX 100CC. LUNGS CLEAR TO AUSCULTATION, VS WNL.
--- NOTE | 2019-02-24 02:13 | NUR ---
PT CALM, ISOLATIVE TO SELF. AMBULATES THROUGHOUT UNIT WITH STEADY GAIT. MOOD APPEARS STABLE. UNABLE TO COMPLETE ASSESSMENT DUE TO NOTED LANGUAGE BARRIER. REFUSED HS MEDICATIONS AFTER X3 ATTEMPTS, UNRECEPTIVE TO EDUCATION. VOICES NO SI/HI OR HALLUCINATIONS. NO NOTED REPSONDING TO INTERNAL STIMULI. NO PARANOIA/DELUSIONS OBSERVED. NO PHYSICAL COMPLAINTS VOICED. NO FURTHER EMESIS NOTED. PEG TUBE SITE INTACT, NO SIGNS OR SYMPTOMS OF INFECTION NOTED. PT CURRENTLY LAYING DOWN WITH EYES CLOSED, RESPIRATIONS EASY AND REGULAR, NO SIGNS OR SYMPTOMS OF DISTRESS. PLAN IS TO CONTINUE TO MONITOR MOOD AND BEHAVIORS. PROVIDE 1:1 WITH EMOTIONAL SUPPORT NEEDED. REORIENT AND REDIRECT NEEDED. ENCOURAGE MEDICATION COMPLIANCE AND EDUCATE. MAINTAIN Q 15 MIN CHECKS.
--- NOTE | 2019-02-24 04:35 | NUR ---
24 HOUR CHART CHECK COMPLETED.
--- NOTE | 2019-02-24 06:58 | NUR ---
PT REFUSED AM FEEDINGS THIS AM. NO COMPLAINTS NOTED. NO SIGNS OR SYMPTOMS OF DISTRESS NOTED.
[2019-02-24 08:27] VITALS: BP 121/67
--- NOTE | 2019-02-24 08:46 | NUR ---
SPOKE WITH JOHANNE SMITH ORACLE BPM DEVELOPER, ADVISED THAT PT THREW UP AFTER HS TUBE FEEDING AND PT WAS ONLY ABLE TO TOLERATE 1 CAN AT THE4PM FEEDING YESTERDAY. PT CONSUMNED 75% OF BREAKFAST THIS AM, REQUIRES STAFF TO FEED PT. PER JOHANNE SHE WILL TALK WITH GEOVANI DOLAN TO SEE ABOUT HAVING TUBE FEEDINGS DECREASED. NO FURTHER ORDERS AT THIS TIME.
--- NOTE | 2019-02-24 09:48 | NUR ---
Nutritional Support Services Note: Appetite is improving. Pt is eating 75% of meals. Recommend Bolus feedings be reduced to one can after q meal if patient doesn't consume 75% of more. Encourage po inake. [place] food preferences. Gill Conrad Rdn Ld
--- NOTE | 2019-02-24 10:13 | NUR ---
Treatment Plan meeting with Dr. Huertas, RN, AT, SW and Facility Practice Specialist. Plan for discharge is on hold at this time due to Appeal Process through [facility] due to Emergency discharge by [place]. Will Follow.
--- NOTE | 2019-02-24 11:49 | NUR ---
AM GROUP PT WAS PRESENT FOR MORNING GROUP THERAPY SITTING QUIETLY AT A TABLE. PT GOT UP AND MOVED SEATS SEVERAL TIMES. PT MADE NO CONVERSATION. PT EXHIBITED NO INAPPROPRIATE BEHAVIORS WHILE IN GROUP.
--- NOTE | 2019-02-24 12:17 | NUR ---
SPOKE WITH JOHANNE SMITH ADVISED THAT PT VOMITED WHEN STARTING TO EAT LUNCH STATING HIS STOMACH HURT. PT RETURNED TO ROOM TO LAY DOWN. 11AM TUDE FEEDING HELD. JOHANNE SMITH AWARE. NO FURTHER ORDERS AT THIS TIME.
--- NOTE | 2019-02-24 12:22 | NUR ---
SPEECH PATHOLOGY Treatment was attempted this pm during lunchtime meal. Patient was seated upright at a table with peers. He began to rub his stomach and said "my stomach is upset." His margarita nica was thickened to nectar consistency and offered. He declined, then threw up, all over his tray. His tray was removed and he was placed in bed by aide. His nurse was informed of the situation and verbalized understanding. Due to illness, treatment was unable to be conducted at this time. Continue therapy plan tomorrow as appropriate. GARCIA RAYGOZA MSCCC-RADIOLOGICAL TECHNICIAN
--- NOTE | 2019-02-24 15:36 | NUR ---
PM GROUP/SOCIALIZING PT DID NOT ATTEND AFTERNOON GROUP THERAPY. PT WAS IN BED NAPPING
--- NOTE | 2019-02-24 15:44 | NUR ---
NO ADVERSE MOODS OR BEHAVIORS NOTED. PT ALERT TO PERSON ONLY, CONFUSION AND SHORT TERM MEMORY DEFICITS NOTED. LANGUAGE BARRIER NOTED, PT SPEAKS MIX OF RUSSIAN AND SOUTH SUDANESE. PT MED COMPLIANT WITH AM PO MEDS WITHOUT DIFFICULTY, PT REFUSED 1300 MEDS. PT HAD SMALL EMESIS DURING LUNCH TIME. JOHANNE SMITH STORAGE BATTERY INSPECTOR AND TESTER UPDATED. PT CALM, MOOD IS STABLE. PT AMBUALTORY THROUGHOUT UNIT, GAIT STEADY. PT CONTINENT OF BOWEL AND BLADDER WITH DIRECTION TO BATHROOM, EPISODES OF INCONTINENCE NOTED, CARE PROVIDED NEEDED. PLAN IS TO MONITOR PT BEHAVIORS ON Q15 MIN SAFETY CHECKS, ENCOURAGE MED COMPLIANCE, PROVIDE EMOTIONAL SUPPORT AND 1:1 FOR PT TO VOICE FEELINGS.
--- NOTE | 2019-02-24 17:03 | NUR ---
PT TOOK FEW BITES OF DINNER AND STATES "NO TOO MUCH MY STOMACH HURTS". PT REFUSED TUBE FEEDING AT THIS TIME.
[2019-02-24 19:26] VITALS: BP 135/66
--- NOTE | 2019-02-24 21:54 | NUR ---
PT CALM, ISOLATIVE TO SELF. AMBULATES THROUGHOUT UNIT WITH STEADY GAIT. MOOD APPEARS STABLE. UNABLE TO COMPLETE ASSESSMENT DUE TO NOTED LANGUAGE BARRIER. ATE 100% OF HS SNACK WITH ASSISTANCE. PT MEDICATION COMPLIANT WITHOUT DIFFICULTY, UNRECEPTIVE TO EDUCATION. VOICES NO SI/HI OR HALLUCINATIONS. NO NOTED REPSONDING TO INTERNAL STIMULI. NO PARANOIA/DELUSIONS OBSERVED. NO PHYSICAL COMPLAINTS VOICED. PEG TUBE SITE INTACT, NO SIGNS OR SYMPTOMS OF INFECTION NOTED. PT CURRENTLY LAYING DOWN WITH EYES CLOSED, RESPIRATIONS EASY AND REGULAR, NO SIGNS OR SYMPTOMS OF DISTRESS. PLAN IS TO CONTINUE TO MONITOR MOOD AND BEHAVIORS. PROVIDE 1:1 WITH EMOTIONAL SUPPORT NEEDED. REORIENT AND REDIRECT NEEDED. ENCOURAGE MEDICATION COMPLIANCE AND EDUCATE. MAINTAIN Q 15 MIN CHECKS.
--- NOTE | 2019-02-25 05:00 | NUR ---
24 HOUR CHART CHECK COMPLETED.
--- NOTE | 2019-02-25 05:40 | NUR ---
PATIENT OBSERVED ON Q 15 MIN CHECKS TO HAVE SLEPT APPROX 8 HOURS WITH NO AWAKENINGS OR SIGNS AND SYMPTOMS OF DISTRESS NOTED.
[2019-02-25 07:49] VITALS: BP 122/65
--- NOTE | 2019-02-25 08:30 | NUR ---
Treatment Plan meeting was held this a.m. with Dr. Huertas, RN, AT, SW and Overnight Babysitter. Plan for discharge is on hold at this time. Pt. remains in Appeal Process with [facility] due to Emergency discharge order from [facility].
--- NOTE | 2019-02-25 08:30 | NUR ---
PT CONSUMED 50% OF BREAKFAST. NO OSMOLITE GIVEN AT THIS TIME D/T PT HOLDING STOMACH AND GRIMACING. PT ASSISTED BACK TO BED TO REST AT THIS TIME. HOB ELEVATED.
--- NOTE | 2019-02-25 09:50 | NUR ---
PT UP IN DINING AREA WITH PEERS WATCHING TV. NO APPARENT C/O DISCOMFORT AT THIS TIME.
--- NOTE | 2019-02-25 11:47 | NUR ---
AM GROUP/EXERCISE PT DID NOT ATTEND MORNING GROUP THERAPY. PT WAS IN BED RESTING
--- NOTE | 2019-02-25 13:16 | NUR ---
SPEECH PATHOLOGY Treatment was attempted this pm during lunchtime meal. Patient was unavailable. His aide reported that he became ill after consuming a small amount of liquid and vomited. Treatment was unable to be conducted. Patient has been suffering from episodes of nausea and vomiting daily. Overall intake has been poor. Continue plan as appropriate. GARCIA RAYGOZA MSCCC-BALL ENDER
--- NOTE | 2019-02-25 13:30 | NUR ---
PT REFUSING LUNCH. HAD ONE SMALL EMESIS OF UNDIGESTED FOOD. REQUESTING SOME GINGERALE AT THIS TIME. PT ASSISTED TO BED TO REST. LUNGS CLEAR TO AUSCULTATION, AFEBRILE. RESPIRS EASY ON ROOM AIR.
--- NOTE | 2019-02-25 15:20 | NUR ---
DR. HO AND DR. ALBARADO ON UNIT TO SEE PT AT THIS TIME. MADE AWARE OF PT'S EMESIS. MADE AWARE THAT PT HAS NOT HAD OSMOLITE TODAY DESPITE POOR PO INTAKE D/T C/O NAUSEA. NNO AT THIS TIME. DR. HO STATES "OK, IF YOU DO GIVE BOLUS FEED, MAKE SURE TO ONLY GIVE HALF OF A CAN, WAIT A BIT AND THEN GIVE THE OTHER HALF".
--- NOTE | 2019-02-25 15:37 | NUR ---
PM GROUP/ART AND MUSIC PT DID NOT ATTEND AFTERNOON GROUP THERAPY. PT WAS IN BED RESTING
[2019-02-25 19:13] VITALS: BP 122/88
--- NOTE | 2019-02-25 23:51 | NUR ---
24 HR chart check completed.
--- NOTE | 2019-02-26 01:12 | NUR ---
P-ISOLATIVE. PATIENT ALERT AND ORIENTED. PATIENT WITH LANGUAGE BARRIER AND SPEAKES BROKEN TANZANIAN AND BROKEN BRITISH AT TIMES. PATIENT WITH NO RESPIRATORY DISTRESS. PATIENT WITH NO DELUSIONS. PATIENT WITH VISUAL HALLUCINATIONS. PATIENT OBSERVED POINTING AT UNSEEN OBJECTS AND MIXING UP UNSEEN OBJECTS WHILE IN ROOM. PATIENT DENIES HOMICIDAL OR SUICIDAL IDEATIONS AT THIS TIME I-REDIRECTION WITH 1:1 THERAPEUTIC INTERVENTIONS AND PRESENT REALTIY. EDUCATE AND ENCOURAGE MEDICATION COMPLIANCE R-PATIENT PACING IN HALLWAY AND IN DINING AREA AT TIMES THROUGHOUT SHIFT. PATIENT MEDICATION COMPLIANT WITH HS MEDICATIONS. PATIENT WITH ATTEMPTED CONVERSATIONS WITH PEERS IN DINING AREA. CONVERSATIONS WITH PEERS WITH DIFFICULTY AT TIMES DUE TO LANGUAGE BARRIER. PEG TUBE PATENT AND PLACEMENT VERIFIED WITH 30ML AIR BOLUS. P-CONTINUE TO ENCOURAGE MEDICATION COMPLIANCE, CONTINUE TO PRESENT REALITY, ENCOURAGE GROUP THERAPY WHILE AWAKE
--- NOTE | 2019-02-26 05:06 | NUR ---
PATIENT SLEPT >6 HOURS OF UNINTERRUPTED SLEEP THROUGHOUT SHIFT. Q 15 MINUTE CHECKS MAINTAINED
[2019-02-26 07:45] VITALS: BP 127/88
--- NOTE | 2019-02-26 08:30 | NUR ---
Patient resting quietly with no c/o discomfort. Respirations easy and regular. Vital signs stable. No overt distress. DR. WREN ON UNIT TO ASSESS PT AT THIS TIME. REPORT GIVEN. ROSA MANZANARES
--- NOTE | 2019-02-26 08:31 | NUR ---
SPEECH THERAPY Treatment attempted this morning during morning meal. Patient receiving supplemental feeds through NG tube with partial tray. Patient's aide reported she assisted patient with breakfast this morning, feeding him a few bites of pears and pudding. She reported no overt oropharyngeal difficulty. Patient's intake remains limited with episodes of emesis throughout the week. Continue to attempt short-term treatment as appropriate. Leny Cox MA [facility]-SENIOR COST ESTIMATOR
--- NOTE | 2019-02-26 09:40 | NUR ---
Treatment Plan meeting with Dr. Huertas, RN, AT, SW and Respiratory Care Practitioner. Plan for discharge Next week. Pt. appeal is still pending with [facility]. Will Follow.
--- NOTE | 2019-02-26 10:06 | NUR ---
SPOKE WITH DR. WREN AND JOHANNE SMITH, STOCK CHECKERER. MADE AWARE OF PT'S NAUSEA AND VOMITING YESTERDAY. PER , PT WILL DO THIS WHEN ANXIOUS. DR. WREN AND JOHANNE SMITH IN AGREEMENT THAT PRN ZOFRAN IS TO BE USED PROPHYLACTICALLY. PER JOHANNE SMITH, INCREASE FREQUENCY TO Q6H. PRN ZOFRAN GIVEN AT THIS TIME.
--- NOTE | 2019-02-26 10:50 | NUR ---
PT IN GROUP THERAPY LISTENING TO MUSIC AT THIS TIME. NO APPARENT C/O NAUSEA.
--- NOTE | 2019-02-26 11:38 | NUR ---
AM GROUP PT ATTENDED MORNING GROUP THERAPY AND PARTICIPATED BY SITTING AND LISTENING TO MUSIC. PT HAD EYES CLOSED AND WAS ROCKING AND TAPPING HIS FOOT TO THE BEAT. PT ATTEMPTED CONVERSATION WITH THIS LASER ENGINEER BUT SPOKE IN PORTUGUESE/KISWAHILI MIX. PT EXHIBITED NO AGITATION, AGGRESSION NOR ANY INAPPROPRIATE BEHAVIORS.
--- NOTE | 2019-02-26 11:38 | NUR ---
Observed patient in AM group listening to music and tapping his foot and hand to the music. Pt appeared to be enjoying himself. Pt sat away from the group and was not interacting with others.
--- NOTE | 2019-02-26 12:34 | NUR ---
SPEECH THERAPY Attempted to see patient this afternoon. Upon clinician arrival, patient was being escorted back to his room by aide. Patient's aide stated that he had just "spit up" the ensure that he had drank. Patient not appropraite for follow-up treatment at this time due to N/V. Short-term follow-up treatment will resume at later time/date as appropriate. Leny Cox MA CCC-INSIDE SALES ASSISTANT
--- NOTE | 2019-02-26 13:20 | NUR ---
RECEIVED A CALL FROM ADELINE LUU FROM [facility]. STATES THEY ARE HAVING PROBLEMS GETTING THEIR FAXES AND THAT PT WAS APPROVED 02/18-02/24 WITH [facility] ON 10/25. ASKED ME TO EMAIL UPDATES TO HER. UPDATES EMAILED TO ADELINE.
--- NOTE | 2019-02-26 15:40 | NUR ---
PM GROUP/KULDIP PT DID NOT ATTEND AFTERNOON GROUP THERAPY. PT WAS IN BED NAPPING
[2019-02-26 19:54] VITALS: BP 130/85
--- NOTE | 2019-02-26 23:45 | NUR ---
P-ISOLATIVE. PATIENT ALERT AND ORIENTED. PATIENT WITH LANGUAGE BARRIER AND SPEAKES BROKEN ANGOLAN AND BROKEN YEMENI AT TIMES. PATIENT WITH NO RESPIRATORY DISTRESS. PATIENT WITH NO DELUSIONS OR HALLUCINATIONS. PATIENT DENIES HOMICIDAL OR SUICIDAL IDEATIONS AT THIS TIME. PATIENT DENIES NAUSEA AT THIS TIME I-REDIRECTION WITH 1:1 THERAPEUTIC INTERVENTIONS AND PRESENT REALTIY. EDUCATE AND ENCOURAGE MEDICATION COMPLIANCE R-PATIENT PACING IN HALLWAY AND IN DINING AREA AT TIMES THROUGHOUT SHIFT. PATIENT MEDICATION COMPLIANT WITH HS MEDICATIONS. PATIENT ISOLATIVE IN ROOM THIS SHIFT. PEG TUBE PATENT AND PLACEMENT VERIFIED WITH 30ML AIR BOLUS. PEG TUBE DRESSING AND ABDOMINAL BINDER INTACT. P-CONTINUE TO ENCOURAGE MEDICATION COMPLIANCE, CONTINUE TO PRESENT REALITY, ENCOURAGE GROUP THERAPY WHILE AWAKE
--- NOTE | 2019-02-27 00:49 | NUR ---
24 HR chart check completed.
--- NOTE | 2019-02-27 06:01 | NUR ---
PATIENT SLEPT >8 HOURS OF UNINTERRUPTED SLEEP THROUGHOUT SHIFT. Q 15 MINUTE CHECKS MAINTAINED
[2019-02-27 07:51] VITALS: BP 146/72
--- NOTE | 2019-02-27 09:09 | NUR ---
PT CONSUMED 50% OF BREAKFAST, PT REFUSED ADDITIONAL TUBE FEEDING.
--- NOTE | 2019-02-27 09:34 | NUR ---
DR. AMEZQUITA ON UNIT TO ASSESS PT, UPDATE PROVIDED.
--- NOTE | 2019-02-27 10:00 | NUR ---
P: PT PACING AND RESTLESS THROUGHOUT THE MORNING. I: ENCOURAGED GROUP PARTICIPATION AND SOCIALIZATION, ENCOURAGED REST PERIODS. R: PT CONTINUES TO BE RESTLESS AND PACES AT TIMES, ENCOURAGEMENT TO SIT AND REST EFFECTIVE FOR SHORT PERIODS OF TIMES. PT ALERT TO PERSON ONLY, CONFUSION AND SHORT TERM MEMORY DEFICITS NOTED PER PT BASELINE. PT MED COMPLIANT WITHOUT DIFFICULTY, UNABLE TO PROVIDE MED EDUCATION D/T COGNITION. PT CALM, INTERACTIVE WITH STAFF AND PEERS. LANGUAGE BARRIER NOTED, PT SPEAKS A MIX OF NEPALI AND CYMRO. PT AMBULATORY THROUGHOUT UNIT, GAIT STEADY. PT CONTINENT OF BOWEL AND BLADDER, WITH DIRECTION TO BATHROOM, EPISODES OF INCONTINENCE NOTED, CARE PROVIDED NEEDED. P: MONITOR PT BEHAVIORS ON Q15 MIN SAFETY CHECKS, ENCOURAGE MED COMPLIANCE, PROVIDE EMOTIONAL SUPPORT AND 1:l FOR PT TO VOICE FEELINGS, ENCOURAGE REST PERIODS, RE-ORIENT AND PRESENT REALITY
--- NOTE | 2019-02-27 11:36 | NUR ---
AM GROUP/EXERCISE/DISCUSSION/ART PT ATTENDED AND PARTICIPATED BY LISTENING TO MUSIC AND OBSERVING PEERS. PT PLEASANT WITH NO AGGRESSION OR ANY SEXUALLY INAPPROPRIATE BEHAVIORS. PT WOULD WALK UP TO PEERS, THIS STAFF, AND FINANCIAL ADVOCATE AND STAND CLOSE AND SOMETIMES TOUCH A SHOULDER OR WANT TO SHAKE HANDS. PT EASILY REDIRECTED, AND WILL CONTINUE TO BE ENCOURAGED TO ATTEND AN DPARTICIPATE IN GROUP TO BEST OF PT ABILITY.
--- NOTE | 2019-02-27 12:35 | NUR ---
PT CONSUMED 10% OF LUNCH THEN C/O UPSET STOMACH. PT MEDICATED WITH PRN ZOFRAN PER ORDERS. TUBE FEEDING HELD PER NURSING JUDGEMENT D/T PT C/O UPSET STOMACH. WILL CONTINUE TO MONITOR.
--- NOTE | 2019-02-27 15:42 | NUR ---
PM GROUP/NOELLE/LEISURE SKILLS PT IN ATTENDANCE BUT SLEPT ENTIRE GROUP. PT WILL CONTINUE TO ATTEND FUTURE GROUP SESSIONS AND PARTICIPATE TO BEST OF PT ABILITY.
--- NOTE | 2019-02-27 16:55 | NUR ---
PT CONSUMED 4 BITES OF DINNER AND 2 SIPS OF LEMON VIEJAS SODA, PT BEGAN HOLDING HIS STOMACH STATING "TOO MUCH IT HURTS". PT REFUSED ADDITIONAL TUBE FEEDINGS.
[2019-02-27 19:32] VITALS: BP 126/77
--- NOTE | 2019-02-27 21:37 | NUR ---
P-ISOLATIVE, WITHDRAWN. PATIENT ALERT AND ORIENTED. PATIENT WITH LANGUAGE BARRIER AND SPEAKES BROKEN PERSIAN AND BROKEN GIBRALTARIAN AT TIMES. PATIENT WITH NO RESPIRATORY DISTRESS. PATIENT WITH NO DELUSIONS OR HALLUCINATIONS. PATIENT DENIES HOMICIDAL OR SUICIDAL IDEATIONS AT THIS TIME. PATIENT DENIES ANY NAUSEA OR ABDOMINAL DISCOMFORT I-REDIRECTION WITH 1:1 THERAPEUTIC INTERVENTIONS AND PRESENT REALTY. EDUCATE AND ENCOURAGE MEDICATION COMPLIANCE R-PATIENT MEDICATION COMPLIANT WITH HS MEDICATIONS. PATIENT ISOLATIVE IN ROOM THIS SHIFT. PEG TUBE PATENT AND PLACEMENT VERIFIED WITH 30ML AIR BOLUS. PEG TUBE DRESSING AND ABDOMINAL BINDER INTACT. PATIENT WITH MINIMAL INTERACTION WITH PEERS THIS SHIFT P-CONTINUE TO ENCOURAGE MEDICATION COMPLIANCE, CONTINUE TO PRESENT REALITY, ENCOURAGE GROUP THERAPY WHILE AWAKE
--- NOTE | 2019-02-27 22:47 | NUR ---
24 HR chart check completed.
--- NOTE | 2019-02-28 05:46 | NUR ---
PATIENT SLEPT >8 HOURS OF SLEEP THROUGHOUT SHIFT. Q 15 MINUTE CHECKS MAINTAINED
[2019-02-28 07:20] VITALS: BP 111/79
--- NOTE | 2019-02-28 11:52 | NUR ---
DR. AMEZQUITA ON UNIT TO ASSESS PT, UPDATE PROVIDED.
--- NOTE | 2019-02-28 12:09 | NUR ---
PT CONSUMED 85% OF BREAKFAST, NO ADDITIONAL TUBE FEEDING NEEDING. PT REFUSED LUNCH STATING "NO FEEL GOOD." PT MEDICATED WITH ZOFRAN PRN PER ORDERS. PT CONTINUES TO REFUSE LUNCH AND TUBE FEEDINGS. WILL CONTINUE TO ENCOURAGE PO INTAKE.
--- NOTE | 2019-02-28 12:55 | NUR ---
AM GROUP/GAMES PT ATTENDED AND PARTICIPATED BY LISTENING TO MUSIC AND OBSERVING. PT DID MAKE KISSING SOUNDS TOWARDS A PEER BUT EASILY REDIRECTED. PT WILL CONTINUE TO ATTEND AND PARTICIPATE TO BEST OF PT ABILITY.
[2019-02-28 20:00] VITALS: BP 123/84
--- NOTE | 2019-02-28 23:14 | NUR ---
PT HAS ST/LT MEMORY DEFICIT WITH POOR COMMUNICATION SKILLS DUE TO LANGUAGE BARRIER, PT WILL SMILE AND NOD WHEN SPOKEN TO. PT OFFERED SNACK THIS EVENING BUT REFUSED STATING " TOO MUCH, TO MUCH" AT THAT TIME PT ALSO OFFERED HIS MEDICATION IN WHICH HE TOOK WITH MINIMAL PROMPTING, PT GIVEN ZOFRAN AT THAT TIME. PT COMPLIANT WITH MEDICATION BUT WHEN ATTEMPTING TO PM PT AND DO SMALL BOLUS, PT STATED "NO TOO MUCH TOO MUCH" WILL ATTEMPT AT A LATER TIME. NO EPISODES OF COMBATIVE BEHAVIOR. PT WANDERED HALLWAY EARLIER WITH ANOTHER PEER LOOKING AT EXIT DOORS EASILY REDIRECTED AWAY AT TIMES.
--- NOTE | 2019-03-01 04:42 | NUR ---
PT SLEPT PAST 2229 AND CONTINUES TO BE RESTIN GAT THIS TIME. GIVEN 60 CC OF FEEDING THIS EVENING, PLACEMENT CHECKED WITH AIR BOLUS, PT STARTED TO COMPLAIN OF TOO MUCH TOO MUCH. NO FURTHER FEEDING GIVEN AT THAT TIME
[2019-03-01 07:50] VITALS: BP 119/62
--- NOTE | 2019-03-01 08:07 | NUR ---
Patient resting quietly with no c/o discomfort. Respirations easy and regular. Vital signs stable. No overt distress. DR. WREN ON UNIT. UPDATE GIVEN. ROSA MANZANARES
--- NOTE | 2019-03-01 08:30 | NUR ---
Treatment Plan meeting with Dr. Huertas RN, AT, and Hog Operator. Plan for discharge unknown at this time. Pt. remains in Appeal process through [facility] since Emergency discharge from [place].
--- NOTE | 2019-03-01 09:07 | NUR ---
Left a voicemail message with [facility] office requesting any new information about time of pending hearing to dispute pt's emergency discharge from [facility]. Await a return call.
[2019-03-01 10:40] LABS: LIPASE 181 U/L (73-393)
--- NOTE | 2019-03-01 11:35 | NUR ---
AM GROUP PT DID NOT ATTEND MORNING GROUP THERAPY. PT WAS IN THE DAYROOM LISTENING TO MUSIC. PT IS UNABLE TO PARTICIPATE IN GROUP AT THIS TIME DUE TO COGNITIVE IMPAIRMENT AND LANGUAGE BARRIER.
--- NOTE | 2019-03-01 12:20 | NUR ---
IP APPROVED THROUGH TODAY 03/01 WITH NEXT REVIEW DATE 03/02. AUTH NUMBER [id number]
--- NOTE | 2019-03-01 12:26 | NUR ---
SPEECH PATHOLOGY Treatment was attempted this date during lunchtime meal. Patient was resting in bed with eyes closed. Clinician attempted to accompany him to the activity room with peers to eat lunch. He politely refused, shaking his head no, then closed his eyes. Patient has frequently c/o upset stomach and experiences emesis during the day and will often eat poorly and refuse meals due to this. He is often unable to participate in treatment. When he has been seen for swallowing treatment, he has displayed safe tolerance for purees and nectar thick liquids. Recommend he remain on present diet with assistance with meals as needed. Physicians are investigating causes of his stomach issues. As he displays no oral or pharyngeal swallowing problems, recommend discharge from therapy at this time. Thank you for this referral. It has been a pleasure taking part in this patient's care. GARCIA RAYGOZA MSCCC-PAINTING MACHINE OPERATOR
--- NOTE | 2019-03-01 13:58 | NUR ---
Received a call from pt's who stated that she received a call from [facility] today and that she was told that [facility] will in no way take the pt back, even if the hearing determines that he should return. Empathized with pt's and then discussed other options. Pt's stated that the [facility] her the [facility] of: [facility], [facility], [place], and [facility]. Pt's prefers [facility]. Informed her that [facility] usually has a waiting list. Pt's stated to make referrals to the other NFs. This service writer asked her about [facility]. Pt's again voiced that she does not want pt to discharge there.
--- NOTE | 2019-03-01 14:03 | NUR ---
Spoke to naomi Massey who stated that she confirmed with Janice, import/export administrator at [facility], that pt will absolutely not be allowed to return. Shilpa continued that Janice stated further that they will pay the financial penalty rather than accept pt back should they lose the hearing. Shilpa stated that she phoned pt's , told her this, and recommended that pt's choose another NF. Shilpa stated that [facility] should be assisting with the referrals to other NFs. Shilpa also recommended to pt's that she should tour [facility].
--- NOTE | 2019-03-01 14:07 | NUR ---
This AM, observed pt enjoying music that was playing in the activity room. Pt made eye contact with this medical underwriter and smiled. Pt did not speak.
--- NOTE | 2019-03-01 15:17 | NUR ---
Shift chart check completed.
--- NOTE | 2019-03-01 15:37 | NUR ---
PM GROUP/LEISURE INTERESTS PT WAS PRESENT FOR AFTERNOON GROUP THERAPY SITTING IN A CHAIR WITH HIS EYES CLOSED, LISTENING TO MUSIC. PT WAS QUIET AND CALM. PT EXHIBITED NO INAPPROPRIATE BEHAVIORS OR AGGRESSION WHILE IN GROUP
--- NOTE | 2019-03-01 17:57 | NUR ---
PLEASANTLY CONFUSED. NONSENSICAL SPEECH. NO AGGRESSIVE BEHAVIORS DISPLAYED OF THIS TIME IN THE SHIFT. ORIENTATION, MOOD AND AFFECT ASSESSED. ASSESSED PT FOR SI/HI, INTENT OR PLAN. MEDICATIONS ADMINISTERED PER PHYSICIAN'S ORDERS. ASSISTANCE WITH ADL CARE PROVIDED NEEDED. ENCOURAGED PT TO ATTEND AND PARTICIPATE IN [facility] GROUPS AND ACTIVITIES. PT TOLERATED 120CC OF OSMOLITE AT BREAKFAST LUNCH, REFUSED AT SUPPER, PROVIDED D/T POOR PO INTAKE. PT IS ALERT AND ORIENTED TO NAME ONLY. CONFUSED IN ALL OTHER AREAS. MEMORY GAPS NOTED. MOOD APPEARS STABLE, AFFECT APPROPRIATE. SPEECH IS SOFT, NONSENSICAL. PT PROVIDES IRRELEVANT ANSWERS TO QUESTIONS ASKED BY STAFF. PT HAS BEEN CALM AND COOPERATIVE THIS DATE. NO AGGRESSIVE BEHAVIORS NOTED. NO DISTRESS NOTED. PLAN TO CONTINUE CURRENT TREATMENT, CONTINUE TO MONITOR MOOD AND BEHAVIORS, PROVIDE APPROPRIATE REORIENTATION, REDIRECTION AND 1:1 NEEDED. CONTINUE TO ENCOURAGE MEDICATION COMPLIANCE WELL GROUP ATTENDANCE AND PARTICIPATION. WILL ATTEMPT TO ENCOURAGE INCREASED PO INTAKE. Q 15 MIN MONITORING PER POLICY.
--- NOTE | 2019-03-01 18:43 | NUR ---
PT CONSUMED APPROX 60CC OF OSMOLITE. PT REFUSED ANY FURTHER AT THIS TIME, STATING "I NEED SLEEP" PT ASSISTED TO BED.
[2019-03-01 19:46] VITALS: BP 122/60
--- NOTE | 2019-03-01 20:24 | NUR ---
REFUSED TO COME DOWN FOR SNACK. RUBBED BELLY SHAKING HEAD NO. GAVE HIM A ZOFRAN WITH HIS EVENING MEDICATIONS AND HE DRANK 1/2 CONTAINER OF OSMOLILTE 1.2
--- NOTE | 2019-03-01 20:36 | NUR ---
UNABLE TO HOLD 1:1 DUE TO LANGUAGE BARRIER.
--- NOTE | 2019-03-01 20:41 | NUR ---
EVENING/RELAXTION/DISCUSSION PT UNABLE TO ATTEND DUE TO SLEEPING AT THIS TIME. PT WILL CONTINUE TO BE ENCOURAGED TO ATTEND FUTURE GROUP SESSIONS.
--- NOTE | 2019-03-01 21:25 | NUR ---
WANDERED IN 310 ROOM. REDIRECTED BACK TO HIS ROOM. HIS REPLY "OH YOU HATE ME". NO EMEMSIS AFTER SRINIVASA
--- NOTE | 2019-03-02 00:40 | NUR ---
24 HR chart check completed.
[2019-03-02 07:30] VITALS: BP 110/68
--- NOTE | 2019-03-02 08:30 | NUR ---
Treatment Plan meeting with Dr. Huertas, RN, AT, SW and General Internist And Physician Leader. Plan for discharge when Bed Available. Referrals have been faxed to [facility], [place], [facility], [facility].
--- NOTE | 2019-03-02 10:30 | NUR ---
DR. AMEZQUITA ON UNIT TO ASSESS PATIENT.
--- NOTE | 2019-03-02 10:52 | NUR ---
Sky from [place] [facility] Spoke with patient via telephone. She will be touring [facility].
--- NOTE | 2019-03-02 11:52 | NUR ---
AM GROUP/COPING WITH ANXIETY PT WAS PRESENT FOR MORNING GROUP THERAPY AND SAT AT THE TABLE WITH PEERS. PT IS UNABLE TO PARTICIPATE DUE TO COGNITIVE IMPAIRMENT. PT WILL OCCASIONALLY NOD HEAD AND SMILE BUT MAKES NO ATTEMPT AT CONVERSATION. PT EXPRESSED NO AGITATION OR AGGRESSION WHILE IN GROUP NOR ANY INAPPROPRIATE SEXUAL BEHAVIORS.
--- NOTE | 2019-03-02 13:29 | NUR ---
Received call from Ankita at [facility]. No beds available at this time.
--- NOTE | 2019-03-02 15:09 | NUR ---
CONCURRENT REVIEW FAXED TO [facility].
--- NOTE | 2019-03-02 19:25 | NUR ---
PATIENT IS ALERT TO SELF WITH CONFUSION. LONG/SHORT TERM MEMORY DEFICITS. MOOD IS STABLE, NO AGGRESSION OBSERVED. NO RESPONSE TO INTERNAL STIMULI. NO VOICED STATEMENT OF HI/SI OR PAIN. MEDICATION COMPLAINT. Q 15 MINUTE SAFETY CHECKS MAINTAINED. 1 PERSON ASSIST WITH ACTIVITIES OF DAILY LIVING, CONTINENT OF BOWEL AND BLADDER. SET UP FOR MEALS, ONE PERSON ASSIST WITH MEALS. INTAKE HAVE GREATLY IMPROVED OVER THE LAST 24 HRS. CONTINUE TO MONTIOR FOR AGGRESSION; PROVIDE ONE ON ONE AND REDIRECTION NEEDED.
[2019-03-02 19:28] VITALS: BP 122/76
--- NOTE | 2019-03-03 04:49 | NUR ---
[facility] chart check completed.
--- NOTE | 2019-03-03 08:00 | NUR ---
Treatment Plan meeting with Dr. Huertas, RN, AT, SW and Unitizer. Plan for discharge Friday or Next week. is touring facilities today.
[2019-03-03 08:13] VITALS: BP 99/65
--- NOTE | 2019-03-03 10:00 | NUR ---
DR AMEZQUITA UNIT TO ASSESS PATIENT.
--- NOTE | 2019-03-03 10:14 | NUR ---
Spoke with pt's Tina and informed her that [place] declined pt. Tina shared that she is going to [facility] this afternoon for a tour. Educated Tina about the postives of [facility].
--- NOTE | 2019-03-03 10:25 | NUR ---
Spoke with Renee at [facility]. Pt. is to tour facility today and Renee states that she will notify if is willing for pt. to discharge to [facility].
--- NOTE | 2019-03-03 10:34 | NUR ---
Pt wandering [facility] this AM. Pt was pleasant upon approach smiling at this sheet writer. Pt did not engage in conversation but continued to smile at this sheet writer.
--- NOTE | 2019-03-03 11:58 | NUR ---
AM GROUP PT DID NOT ATTEND MORNING GROUP THERAPY. PT WAS WALKING THE HALLS. PT IS UNABLE AT THIS TIME TO PARTICIPATE IN GROUP DUE TO COGNITIVE IMPAIRMENT
--- NOTE | 2019-03-03 14:15 | NUR ---
PATEINT HAD 2 EMESIS, VITALS: 126/70, 88, 18, 97.3, 100%RA; PATIENT RUBBING ON STOMACH; HURTS. DR. HO NOTIFIED.
--- NOTE | 2019-03-03 15:38 | NUR ---
PM GROUP/LEISURE INTERESTS PT WAS PRESENT FOR AFTERNOON GROUP THERAPY BUT IS UNABLE TO PARTICIPATE DUE TO COGNITIVE IMPAIRMENT. PT WAS ILL AND VOMITED DURING GROUP. PT WAS CLEANED UP AND RETURNED AND SAT AT THE BACK OF THE ROOM WITH HIS EYES CLOSED. PT EXHIBITED NO AGITATION, AGGRESSION OR SEXUAL INAPPROPRIATENESS.
--- NOTE | 2019-03-03 16:12 | NUR ---
Shift chart check completed.
--- NOTE | 2019-03-03 17:42 | NUR ---
PATIENT IS ALERT TO ALERT TO PERSON WITH CONFUSION; ABLE TO VOICE SOME NEEDS. HAS LANGUAGE BARRIERS. INTERACTIVE WITH STAFF AND OTHER PATIENTS. MOOD IS STABLE. NO VOICED STATEMENT OF HI/SI OR PAIN. NO RESPONSE TO INTERNAL STIMULI. 1 PERSON ASSIST WITH ACTIVITIES OF DAILY LIVING, CONTINTENT OF BOWEL AND BLADDER. SET UP FOR MEALS, ASSIST WITH EATING MEALS.N 100% WITH BREAKFAST AND LUNCH; DID NOT EAT DINNER, OFFER OSMOLITE SUPPLEMENT DRINK. AMBULATORY WITH STEADY GAIT. MEDICATION COMPLAINT. Q 15 MINUTE SAFETY CHECKS. CONTINUE TO MONITOR FOR AGGRESSION; PROVIDE ONE ON ONE AND REDIRECTION.
[2019-03-03 19:33] VITALS: BP 126/82
--- NOTE | 2019-03-03 19:53 | NUR ---
P--DISRUPTIVE, CONFUSED I--REDIRECTED TO PERSONAL SPACE, REMOVED FROM SITUATION, REORIENTED TO PLACE AND TIME. R--NON VERBAL, JUST SMILES, THERE IS A LANGUAGE BARRIER. P--MONITOR FOR CHANGES IN BEHAVIOR OR MOOD
--- NOTE | 2019-03-04 02:35 | NUR ---
24 HR chart check completed.
--- NOTE | 2019-03-04 05:57 | NUR ---
SLEPT WELL PAST 2145PM
[2019-03-04 07:45] VITALS: BP 114/67
--- NOTE | 2019-03-04 08:00 | NUR ---
Treatment Plan meeting with Dr. Huertas, RN, AT, SW and Nicking Machine Operator. Plan for discharge /Friday. is still deciding on placement facilities.
--- NOTE | 2019-03-04 11:32 | NUR ---
Spoke with pt's Tina to discuss pt's discharge. Tina shared that she toured [facility], but she remains concerned about NFs since her experience with [facility]. Empathized with her and reassured her that [facility] is well known for being able to manage behaviors of their residents. Also shared with Tina that it is rare that a NF will enforce an emergency discharge. Tina stated that she is having a family meeting [facility] to discuss if pt could be managed at home vs moving to [facility]. Confirmed with Tina that ultimately it is her decision. Offered points of concern should pt discharge to home. Tina voiced understanding. Per Tina, she will call this life underwriter tomorrow AM with her decision.
--- NOTE | 2019-03-04 12:23 | NUR ---
AM GROUP/LIGHT THERAPY PT DID NOT ATTEND MORNING GROUP THERAPY. PT WAS WALKING THE CLARKE.
--- NOTE | 2019-03-04 15:30 | NUR ---
PM GROUP PT ATTENDED AFTERNOON GROUP THERAPY AND PARTICIPATED BY LISTENING TO THE MUSIC. PT EXHIBITED NO AGGRESSION OR SEXUALLY INAPPROPRIATE BEHAVIOR WHILE IN GROUP
[2019-03-04 20:05] VITALS: BP 129/64
--- NOTE | 2019-03-04 22:38 | NUR ---
24 HR chart check completed.
--- NOTE | 2019-03-04 22:39 | NUR ---
PATIENT ALERT TO SELF. AMBULATORY PER SELF. GAIT STEADY. HOLDING HANDS WITH A FEMALE PATIENT. BECAME AGGRESSIVE WITH STAFF WHEN THEY TRIED TO DISENGAGE THEM. REFUSED TO LET GO OF OTHER PATIENT. ONCE HE DID WAS REDIRECTED AWAY FROM FEMALE PATIENT. IS CONTINENT. IS MED COMPLIANT. MEDS ARE CRUSHED AND HE RECIEVES A PUREED DIET. APPETITE IS GOOD. IS MONITORED WITH ORDERS IF HE DOES NOT EAT. NO SI/HI NOTED. 15 MINUTE CHECKS MAINTAINED.
--- NOTE | 2019-03-05 06:01 | NUR ---
PT SLEPT OVER 9 HOURS... AWAKENING ONLY ONCE AND WAS EASILY REDIRECTED BACK TO BED.
[2019-03-05 07:40] VITALS: BP 124/73
--- NOTE | 2019-03-05 08:00 | NUR ---
Treatment Plan meeting with Dr. Huertas, RN, AT, SW and Event Marketing Coordinator. Plan for discharge today if approves for patient to discharge to [facility]. had discussed Pt. going home. Will follow.
--- NOTE | 2019-03-05 08:23 | NUR ---
DR HO UPDATED ON PT DISCHARGE TODAY AROUND NOON.
[2019-03-05] MEDS ORDERED: CITALOPRAM20 MG PO (08:53)
[2019-03-05] MEDS ORDERED: MEMANTINE HCL10 MG PO (08:53)
[2019-03-05] MEDS ORDERED: RISPERIDONE M-0.5 MG BC (08:53)
[2019-03-05] MEDS ORDERED: ARICEPT10 M1 PO (08:53)
--- NOTE | 2019-03-05 11:01 | NUR ---
Received a call from pt's Tina who stated that the family has decided that it is best for pt to discharge to [facility]. Informed Tina that the discharge would be today and that she would receive a call as to the time of discharge.
--- NOTE | 2019-03-05 11:41 | NUR ---
AM GROUP PT ATTENDED MORNING GROUP THERAPY AND PARTICIPATED BY LISTENING TO MUSIC. PT WOULD OCCASIONALLY TRY TO ADD TO THE CONVERSATION. PT EXHIBITED NO AGITATION, AGGRESSION OR INAPPROPRIATE BEHAVIORS WHILE IN GROUP
--- NOTE | 2019-03-05 15:35 | NUR ---
PM GROUP PT ATTENDED AFTERNOON GROUP THERAPY AND PARTICIPATED BY LISTENING TO MUSIC.PT EXHIBITED NO AGITATION, AGGRESSION OR SEXUAL INAPPROPRIATENESS WHILE IN GROUP
[2019-03-05 19:38] VITALS: BP 129/76
--- NOTE | 2019-03-05 23:12 | NUR ---
24 HR chart check completed.
--- NOTE | 2019-03-06 02:36 | NUR ---
P-CONFUSION I-REORIENT, REDIRECT, ADMINISTER MEDICATIONS, MONITOR SLEEP R-PT ALERT TO PERSON ONLY, AMBULATES & WANDERS ON THE UNIT. CONFUSED BUT CALM. NO AGGRESSIVE OR SEXUAL BEHAVIORS NOTED. COMPLIANT TAKING MEDICATIONS P-CONTINUE TO MONITOR BEHAVIORS & PROVIDE PHYSICAL ASSISTANCE & EMOTIONAL SUPPORT NEEDED
--- NOTE | 2019-03-06 05:56 | NUR ---
PT HAS SLEPT PAST 2199
[2019-03-06 07:36] VITALS: BP 118/63
--- NOTE | 2019-03-06 09:58 | NUR ---
DR. SMITH ON UNIT TO ASSESS PT, UPDATE PROVIDED.
--- NOTE | 2019-03-06 11:06 | NUR ---
NO ADVERSE MOODS OR BEHAVIORS NOTED AT THIS TIME. PT ALERT TO PERSON ONLY, CONFUSION AND SHORT TERM MEMORY DEFICITS NOTED PER PT BASELINE. PT MED COMPLIANT WITHOUT DIFFICUTLY, UNABLE TO PROVIDE MED EDUCATION D/T COGNITION. PT CALM, MOOD IS STABLE. PT RESTLESS AND WANDERING AT TIMES PER PT BASELINE. NO HALLUCINATIONS OR DELUSIONS NOTED. NO SUICIDAL THOUGHTS NOTED. PT AMBULATORY THROUGHOUT UNIT, GAIT STEADY. PT CONTINENT OF BOWEL AND BLADDER, WITH DIRECTION. PLAN IS TO MONITOR PT BEHAIVORS ON Q15 MIN SAFETY CHECKS, ENCOURAGE MED COMPLIANCE, PROVIDE EMOTIONAL SUPPORT AND 1:1 FOR PT TO VOICE FEELINGS.
--- NOTE | 2019-03-06 12:41 | NUR ---
AM/BINGO/ART PT ATTENDED 1/2 OF GROUP AND OBSERVED PEERS. PT ALSO TAPPING FOOT TO BACKGROUND MUSIC. PT DID NOT BECOME AGGRESSIVE OR SEXUALLY INAPPROPRIATE AT THIS TIME. PT WILL CONTINUE TO BE ENCOURAGED TO ATTEND AND PARTICIPATE TO BEST OF PT ABILITY.
--- NOTE | 2019-03-06 15:57 | NUR ---
PM/PAINTING/MUSIC PT DID NOT ATTEND OR PARTICIPOATE BUT WANDERED THE HALLS ENTIRE GROUP. PT WILL CONTINUE TO BE ENCOURAGED TO ATTEND AND PARTICIPATE IN GROUP TO BEST OF ABILITY.
[2019-03-06 19:25] VITALS: BP 125/63
--- NOTE | 2019-03-06 22:21 | NUR ---
24 HR chart check completed.
--- NOTE | 2019-03-07 06:11 | NUR ---
PT HAS SLEPT PAST 2214
[2019-03-07 08:34] VITALS: BP 122/64
--- NOTE | 2019-03-07 14:53 | NUR ---
PATIENT IS ALERT TO SELF WITH CONFUSION; LONG/SHORT TERM MEMORY DEIFICITS. MOOD IS STABLE. NO VOICED STATEMENT OF HI/SI OR PAIN. NO RESPONSE TO INTERNAL STIMULI. MEDICATION COMPLIANT. Q 15 MINUTE SAFETY CHECKS MAINTAINED. 1 PERSON ASSIST WITH ACTIVITIES OF DAILY LIVING, CONTINENT OF BOWEL AND BLADDER. SET UP FOR MEALS, WITH ONE PERSON ASSIST. INTAKES VERY DEPENDING ON IF HIS STOMACH IS UPSET. PATIENT IS INTERACTIVE WITH NURSING STAFF. PATIENT RESTING IN BED WITH EYES CLOSED. NO SIGNS OF PAIN OR DISCOMFORT. AMBULATORY WITH STEADY GAIT. CONTINUE TO MONITOR FOR AGGRESSION; PROVIDE ONE ON ONE AND REDIRECTION NEEDED.
[2019-03-07 20:00] VITALS: BP 119/72
--- NOTE | 2019-03-07 21:47 | NUR ---
24 HR chart check completed.
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
--- NOTE | 2019-03-08 05:42 | NUR ---
ATIVAN HAS BEEN EFFECTIVE & PT HAS SLEPT PAST 2299
[2019-03-08 07:45] VITALS: BP 133/65
--- NOTE | 2019-03-08 08:30 | NUR ---
Treatment Plan meeting with Dr. Huertas, RN, AT, SW and Grain Blender. Plan for discharge when [facility] returns. Spoke with Sky at [facility] this a.m. and [facility] remains pending for LTC.
--- NOTE | 2019-03-08 09:49 | NUR ---
Received call from Sky at [facility]. [facility] has returned and pt. is approved for Placement. Pt. may discharge today. Notified [facility].
--- NOTE | 2019-03-08 10:39 | NUR ---
Spoke with Patient Tina and notified her of plans to discharge today with moss picker time 12:00 p.m.
--- NOTE | 2019-03-08 10:51 | NUR ---
Patient is discharging today to [facility]. Follow-up will be with Dr Huertas, visiting psychiatrist. While at [facility], pt's behaviors improved. Pt primarily would wander the alexandra or sit alone in the activity room. Pt was pleasant with staff, interacted minimally with staff and peers.
--- NOTE | 2019-03-08 11:31 | NUR ---
Discharge Paperwork Faxed to [facility].
--- NOTE | 2019-03-08 11:47 | NUR ---
PT IS LEAVING [facility]IA [facility] TO BE TRANSFERRED TO [facility]. VS WNL. PT ALERT AND CONFUSED. BELONGINGS SENT WITH PATIENT AND WATERSHED MANAGER.
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
== END 2019-03-08 11:55 | DRG 883 ==
LOC: 3N 17:57
PROVIDERS: Registered Nurse; ADMIT Psychiatry & Neurology Psychiatry
DX: F63.81 Intermittent explosive disorder (principal); F23 Brief psychotic disorder; F02.81 Dementia in other diseases classified elsewhere, unspecified severity, with behavioral disturbance; G30.9 Alzheimer's disease, unspecified; G20 Parkinson's disease; K21.9 Gastro-esophageal reflux disease without esophagitis; R13.10 Dysphagia, unspecified; E55.9 Vitamin D deficiency, unspecified; D64.9 Anemia, unspecified; Z88.0 Allergy status to penicillin; Z88.8 Allergy status to other drugs, medicaments and biological substances; Z93.1 Gastrostomy status; Z79.899 Other long term (current) drug therapy